=== PATIENT | female | born 1995 | race Hispanic/Latino ===

== ENCOUNTER 2019-06-03 19:15 | Inpatient (IN) | payer MEDICAID, OTHER ==
--- NOTE | 2019-06-03 18:12 | PDOC.LDHP ---
Labor and Delivery H&P Chief complaint: scheduled induction HPI: 24 yo G1 at 39.5 by LMP/7.1wk sono ([facility] 06/05/19) here for elective induction. has been complicated by anemia of and overweight BMI. Otherwise no other concerns. Denies any loss of fluid, contractions, vaginal bleeding or discharge. Endorses good movement. Current gestational age (weeks): 39 (39.5 wks) Due date: 06/05/19 Dating criteria: last menstrual period, first trimester ultrasound Grav: 1 Para: 0 OB History Details: First Current complications: none Abnormal US findings: No Past Medical History: None Current medications: pre- vitamins, iron Previous surgical history: none Allergies/Adverse Reactions: Allergies Allergy/AdvReac Type Severity Reaction Status Date / Time No Known Allergies Allergy Verified 06/03/19 22:38 Social history: none - Physical Exam Vital signs reviewed and normal: yes General: NAD, resting Heart: RRR Lungs: CTAB Abdomen: gravid Extremeties: pitting edema (in feet 1+) FHT: category 1, variability present [place] contractions every: 160 - Vaginal Exam cm dilated: 1 Effacement: 50% Station: -3 - OB Labs Blood type: O RH: positive Antibody Screen: negative HIV: negative RPR: negative HEPSAg: negative 1 hour GCT: negative GBS: negative Rubella: immune - Assessment L&D Assessment: elective induction at term - Plan Plan: admit to L&D -: 24 yo at 39.5 weeks here for elective IOL 1. Term sIUP, elective induction -Desires epidural -SVE: /-3, Bolanos 3 -FHT: Cat 1, baseline 160, accels, mod variability, no decels -Will start with Cytotec 2. Overweight BMI -S+D on growth on 05/07 3. Varicose veins -stable 4. Anemia of -recheck H/H with admission labs -continue PO iron
--- NOTE | 2019-06-03 18:12 | PDOC.FPRHP ---
- History of Present Illness Chief Complaint: elective induction History of Present Illness: 24 yo G1 at 39.5 by LMP/7.1wk chey ([facility] 06/05/19) here for elective induction. has been complicated by anemia of and overweight BMI. Otherwise no other concerns. Denies - History PMHx: PSHx: FHx: Social: - Vital signs BP: [] HR: [] RR: [] Tmax: [] Pox: []% on [] Wt: [] FMR H&P: Upper Level - Plan Date/Time: 06/03/191808 I, [], have evaluated this patient and agree with findings/plan as outlined by senior international tax manager resident. Pertinent changes/additions are listed here.
[~2019-06-03 19:15] MED LIST: Bupivacaine 0.25% 10 ML VIAL ONE
[2019-06-03 22:52] VITALS: BMI 33.4
[2019-06-03] MEDS ORDERED: hydrALAZINE 20 MG/ML VIAL SLOW IVP PRN (22:53)
[2019-06-03] MEDS ORDERED: Acetaminophen 500 MG TAB PO PRN (22:53)
[2019-06-03] MEDS ORDERED: Butorphanol Tartrate 1 MG/ML VIAL SLOW IVP PRN (22:53)
[2019-06-03] MEDS ORDERED: Carboprost 250 MCG/ML AMP IM PRN (22:53)
[2019-06-03] MEDS ORDERED: Diphenoxylate HCl/Atropine Tablet PO PRN (22:53)
[2019-06-03] MEDS ORDERED: NS / Oxytocin 40 units/1000ml 1,000 ML IV PRN (22:53)
[2019-06-03] MEDS ORDERED: Ibuprofen 800 MG TAB PO PRN (22:53)
[2019-06-03] MEDS ORDERED: Promethazine HCl 25 MG/ML VIAL IM PRN (22:53)
[2019-06-03] MEDS ORDERED: Ondansetron PF 4 MG/2 ML Vial IVP PRN (22:53)
[2019-06-03] MEDS ORDERED: Docusate 100 MG CAP PO PRN (22:53)
[2019-06-03] MEDS ORDERED: Methylergonovine 0.2 MG/ML VIAL IM PRN (22:53)
[2019-06-03] MEDS ORDERED: Misoprostol 200 MCG TAB PR PRN (22:53)
[2019-06-03] MEDS ORDERED: Lidocaine 1% (PF) 30 ML VIAL SC PRN (22:53)
[2019-06-03] MEDS ORDERED: Misoprostol 100 MCG TAB VAG SCH (23:00)
[2019-06-03 23:16] LABS: Hemoglobin 12.2 g/dL (12.0-16.0); Mean Corpuscular HGB CONC 35.2 g/dL (32.0-36.0); Mean Corpuscular Hemoglobin 31.3 pg (27.0-31.0); Mean Corpuscular Volume 89.1 fL (78.0-98.0); Mean Platelet Volume 8.7 fL (7.4-10.4); Platelet Count 240 thou/uL (130-400); RBC Distribution Width 12.1 % (11.5-14.5); Red Blood Cell (RBC) Count 3.88 mill/uL (4.20-5.40); White Blood Cell (WBC) Count 11.9 thou/uL (4.8-10.8)
[2019-06-03] MEDS: Lactated Ringer's 1,000 ML IV SCH (23:30)
[2019-06-03] MEDS: Misoprostol 100 MCG TAB VAG SCH (23:32)
[2019-06-03 23:55] LABS: HBSAg Index 0.17 S/CO (0-0.99); Hep B Surf Ag Non-Reactive S/CO (NonReactive); Syphilis Antibody Nonreactive (Nonreactive); Syphilis Antibody Index 0.05 S/CO (<1.00 Non-Reactive)
[2019-06-04] MEDS: Lactated Ringer's 1,000 ML IV SCH ×3 (03:15→23:15)
[2019-06-04] MEDS: Misoprostol 100 MCG TAB VAG SCH ×6 (03:17→23:30)
--- NOTE | 2019-06-04 03:41 | PDOC.LDPN ---
Labor & Delivery Progress Note - Subjective Subjective: comfortable - Objective Vital signs reviewed and normal: yes General: NAD, resting Uterine fundus: non tender SVE: 50/-3 Dilation: 1 Effacement: 50% Station: -3 FHT: category 1, variability present - Assessment (1) Term Code(s): Z34.90 - ENCNTR FOR SUPRVSN OF NORMAL , UNSP, UNSP TRIMESTER Current Visit: Yes Status: Acute Plan: continue plan of care -: 24 yo at 39.5 weeks here for elective IOL 1. Term sIUP, elective induction -Desires epidural -SVE: /-3, Bolanos 3 -FHT: Cat 1, baseline 140, accels, mod variability, no decels, Contractions 3-4 minutes -Cytotec placed, will place second one 2. Overweight BMI -S+D on growth on 05/07 3. Varicose veins -stable 4. Anemia of -H/H: 12. -continue PO iron
--- NOTE | 2019-06-04 09:04 | PDOC.LDPN ---
Labor & Delivery Progress Note - Subjective Subjective: comfortable - Objective Vital signs reviewed and normal: yes General: NAD, resting SVE: /-2 @ 0730 Dilation: 1 Effacement: 50% Station: -2 FHT: category 1 [place] contractions every: 1-2 min Plan: continue plan of care -: 24 yo at 39.5 weeks here for elective IOL 1. Term sIUP, elective induction -Desires epidural -SVE: /-2, [place]anos 3 -FHT: Cat 1, baseline 140-145, accels, mod variability, no decels, Contractions 1-2 minutes -Cytotec placed x 2, will hold Cytotec for now d/t contraction pattern 2. Overweight BMI -S+D on growth on 05/07 3. Varicose veins -stable 4. Anemia of -H/H: 12. -continue PO iron Addendum - Attending - Attending Attestation Date/Time: 06/04/19 0916 I personally evaluated the patient and discussed the management with Dr. Mason I agree with the History, Examination, Assessment and Plan documented above with any addition or exceptions noted below. If contractions not painful ok to give 3rd miso. Marlys
[2019-06-04] MEDS ORDERED: Misoprostol 100 MCG TAB VAG SCH (15:00)
--- NOTE | 2019-06-04 15:10 | PDOC.LDPN ---
Labor & Delivery Progress Note - Subjective Subjective: comfortable, no concerns - Objective Vital signs reviewed and normal: yes General: NAD, resting Uterine fundus: non tender SVE: 2/50/-3 @1500 Dilation: 2 Effacement: 50% Station: -3 FHT: category 1, variability present [place] contractions every: 4-5 min Other exam findings: cytotec 50 mg placement Plan: continue plan of care, labor augmentation -: 24 yo at 39.5 weeks here for elective IOL 1. Term sIUP, elective induction -Desires epidural -SVE: 2/50/-2, Bolanos 3 -FHT: Cat 1, baseline 140-145, accels, mod variability, no decels, Contractions 4-5 minutes -Cytotec placed x 2, at this check placed Cytotec 50 mg 2. Overweight BMI -S+D on growth on 05/07 3. Varicose veins -stable 4. Anemia of -H/H: 12.234 -continue PO iron Dispo: Continue to monitor. Will allow patient to eat at 1700 (2 hrs post- cytotec). Consider additional measures at next check. Addendum - Attending - Attending Attestation Date/Time: 06/04/19 0444 I personally evaluated the patient and discussed the management with Dr. Mason I agree with the History, Examination, Assessment and Plan documented above with any addition or exceptions noted below. Patient doing well. Stable. Continue current plan. Ok to eat 2 hours after. Marlys
--- NOTE | 2019-06-04 21:53 | PDOC.LDPN ---
Labor & Delivery Progress Note - Subjective Subjective: comfortable, no concerns - Objective Vital signs reviewed and normal: yes General: NAD, resting Dilation: 2/50/-2 Effacement: 50% Station: -2 FHT: category 1, variability present (moderate) [place] contractions every: 1-3 min Other exam findings: cook catheter balloon placed Plan: continue plan of care, labor augmentation -: balloon placed for labor induction continue expectant mgmt
--- NOTE | 2019-06-05 03:58 | PDOC.LDPN ---
Labor & Delivery Progress Note - Subjective Subjective: comfortable, no concerns (feeling "small" contractions, sleeping through ctx) - Objective Vital signs reviewed and normal: yes General: NAD, resting SVE: cook balloon in place, ~0300, tugged and remained in place per nursing FHT: category 1, variability present (moderate) [place] contractions every: 5-7 min Other exam findings: accels present on FHT Plan: continue plan of care, labor augmentation, pitocin for augmentation -: continue expectant mgmt Cook balloon in place w/ 80/80 mL (intrauterine/vaginal) will begin pitocin for augmentation of labor and titrate per protocol
[2019-06-05] MEDS: NS w/ Oxytocin 10 units 500 ML IV SCH ×2 (04:15→18:10)
[2019-06-05] MEDS: Misoprostol 100 MCG TAB VAG SCH ×5 (04:15→23:43)
--- NOTE | 2019-06-05 07:39 | PDOC.LDPN ---
Labor & Delivery Progress Note - Subjective Subjective: comfortable, no concerns - Objective Vital signs reviewed and normal: yes General: NAD, resting Uterine fundus: non tender SVE: 2/50/-2 @ 0600 Dilation: 2 Effacement: 50% Station: -2 FHT: category 1, variability present [place] contractions every: 1-2 min Other exam findings: membranes intact Procedures: balloon placed at 2200 on 06/04 Plan: continue plan of care -: 24 yo at 39.5 weeks here for elective IOL 1. Term sIUP, elective induction -Desires epidural -SVE: 2/50/-2, Bolanos 3 -FHT: Cat 1, baseline 150, accels, mod variability, no decels, Contractions 1-2 minutes -Cytotec placed x 3 (25, 25, 50 mg) -[place] balloon in place w/ 80/80 mL (intrauterine/vaginal) @ 2200 on 06/04/2019 -Pitocin currently @ 6 for augmentation of labor and titrate per protocol 2. Overweight BMI -S+D on growth on 05/07 3. Varicose veins -stable 4. Anemia of -H/H: 12. -continue PO iron Dispo: Continue to monitor and expectant management. Addendum - Attending - Attending Attestation Date/Time: 06/05/19 7540 I personally evaluated the patient and discussed the management with Dr. Mason I agree with the History, Examination, Assessment and Plan documented above with any addition or exceptions noted below. Patient doing well. Fetus stable. Balloon still in place. Repeat check at 10 to remove balloon. Continue pit per protocol. Marlys
[2019-06-05] MEDS: Lactated Ringer's 1,000 ML IV SCH ×3 (08:38→23:00)
--- NOTE | 2019-06-05 11:21 | PDOC.LDPN ---
Labor & Delivery Progress Note - Subjective Subjective: painful contractions, no concerns - Objective Vital signs reviewed and normal: yes General: NAD, resting, breathing through contractions Uterine fundus: non tender SVE: Balloon out @ 1045 Dilation: 4 Effacement: 75% Station: -2 FHT: category 1 [place] contractions every: 3 Resuscitative measures: amniofusion, maternal IV fluids Plan: continue plan of care, pitocin for augmentation -: 1) eIOL - cervical change with balloon and pitocin - continue pit currently @ 14 - titrate to adequate contractions - membranes intact - cont IOL Dispo: stable, cont plan of care Addendum - Attending - Attending Attestation Date/Time: 06/05/19 0505 I personally evaluated the patient and discussed the management with Dr. Jackman I agree with the History, Examination, Assessment and Plan documented above with any addition or exceptions noted below. Now 4 cm. Balloon out. Membranes still intact. Will continue pitocin per protocol. Repeat exam in 4 hours. Cat 1 tracing. Marlys
--- NOTE | 2019-06-05 14:21 | PDOC.LDPN ---
Labor & Delivery Progress Note - Subjective Subjective: comfortable, no concerns - Objective Vital signs reviewed and normal: yes General: NAD, resting Uterine fundus: non tender SVE: 5/75/-2 @ 1400 Dilation: 5 Effacement: 75% Station: -2 FHT: category 1, variability present [place] contractions every: 2-3 min Plan: continue plan of care, pitocin for augmentation -: 24 yo at 39.5 weeks here for elective IOL 1. Term sIUP, elective induction -Desires epidural -SVE: 5/75/-2, Bolanos 3 -FHT: Cat 1, baseline 145-150, accels, mod variability, no decels, Contractions 2-3 minutes -Cytotec placed x 3 (25, 25, 50 mg) -Cook balloon in place w/ 80/80 mL (intrauterine/vaginal) @ 2200 on 06/04/2019, removed 1100 on 06/05 -Pitocin currently @ 14 for augmentation of labor and titrate per protocol -membranes intact 2. Overweight BMI -S+D on growth on 05/07 3. Varicose veins -stable 4. Anemia of -H/H: 12. -continue PO iron Dispo: Continue to monitor and expectant management. Addendum - Attending - Attending Attestation Date/Time: 06/05/19 6647 I personally evaluated the patient and discussed the management with Dr. Mason I agree with the History, Examination, Assessment and Plan documented above with any addition or exceptions noted below. Continues to make change with pitocin. Will continue per protocol. AROM when able. Cat 1 tracing. Repeat exam in 2 to 4 hours. Marlys
--- NOTE | 2019-06-05 16:31 | PDOC.LDPN ---
Labor & Delivery Progress Note - Subjective Subjective: comfortable, no concerns - Objective Vital signs reviewed and normal: yes General: NAD Uterine fundus: non tender SVE: /- [place] contractions every: 2-3 AROM: clear fluid IUPC placed: yes -: 24 yo at 39.5 weeks here for elective IOL 1. Term sIUP, elective induction -Desires epidural -SVE: /-1 -FHT: Cat 1, baseline 145-150, accels, mod variability, no decels, Contractions 2-3 minutes -AROM, IUPC placed, will titrate up pitocin 2. Overweight BMI -S+D on growth on 05/07 3. Varicose veins -stable 4. Anemia of -H/H: 12. -continue PO iron Dispo: Continue to monitor and expectant management.
[2019-06-05] MEDS ORDERED: Fentanyl 4 mcg/Bup 0.1% Cadd 100 ML ONE (16:56)
[2019-06-05] MEDS ORDERED: diphenhydrAMINE 50 MG/ML VIAL IVP PRN (17:53)
[2019-06-05] MEDS ORDERED: Acetaminophen 325 MG TAB PO PRN (17:53)
[2019-06-05] MEDS ORDERED: Lactated Ringer's 500 ML IV PRN (17:53)
[2019-06-05] MEDS ORDERED: Ondansetron PF 4 MG/2 ML Vial IVP PRN (17:53)
[2019-06-05] MEDS ORDERED: Promethazine HCl 25 MG/ML VIAL IM PRN (17:53)
[2019-06-05] MEDS ORDERED: ePHEDrine/0.9% NaCl/PF SYRINGE 50 mg/10 ml SLOW IVP PRN (17:53)
[2019-06-05] MEDS ORDERED: Naloxone HCl 0.4 mg/ml Vial IVP PRN ×2 (17:53)
[2019-06-05] MEDS ORDERED: Communication Order-Pharmacy FS SCH (18:00)
[2019-06-05] MEDS ORDERED: Fentanyl 4 mcg/Bupivacaine 0.1% Cassette 100 ML EPIDURAL SCH (18:00)
--- NOTE | 2019-06-05 18:19 | PDOC.LDPN ---
Labor & Delivery Progress Note - Subjective Subjective: comfortable, no concerns (epidural just placed) - Objective Vital signs reviewed and normal: yes General: NAD, resting SVE: per Samme RN Dilation: 6 Effacement: 90% Station: -1 FHT: category 2, acceleration absent, late decelerations (has had 5 recurrent decels since finishing placement of epidural), variability present (moderate) [place] contractions every: 2-4 min Other exam findings: Pt BP lower w/ epidural. IUPC placed: yes Resuscitative measures: maternal IV fluids Plan: resuscitative measures -: following epidural, pitocin held and IV fluids given. Pt BP low and FHT showing recurrent late decels x5. Will await return to category 1 strip, then restart pitocin. Epidural in place continue expectant mgmt Next neck in 2 hours.
--- NOTE | 2019-06-05 20:34 | PDOC.LDPN ---
Labor & Delivery Progress Note - Subjective Subjective: comfortable - Objective Vital signs reviewed and normal: yes General: NAD, resting - Assessment (1) Term Code(s): Z34.90 - ENCNTR FOR SUPRVSN OF NORMAL , UNSP, UNSP TRIMESTER Current Visit: Yes Status: Acute -: /-1 contractions q3-4, pit at 10 Cat [address], epidural in place
--- NOTE | 2019-06-05 22:10 | PDOC.LDPN ---
Labor & Delivery Progress Note - Subjective Subjective: comfortable - Objective General: NAD FHT: category 1 - Assessment (1) Term Code(s): Z34.90 - ENCNTR FOR SUPRVSN OF NORMAL , UNSP, UNSP TRIMESTER Current Visit: Yes Status: Acute -: 100/0 contractions q3-4, pit at 10 Cat [address], epidural in place expectant mgmt
[2019-06-05] MEDS ORDERED: Lidocaine 1% (PF) 30 ML VIAL ONE (22:26)
[2019-06-05] MEDS ORDERED: NS / Oxytocin 40 units/1000ml 1,000 ML ONE (22:26)
--- NOTE | 2019-06-05 23:57 | PDOC.OPDEL ---
OB Operative/Delivery Note Delivery Dr/Surgeon: William Maxwell Pre-Delivery Diagnosis: elective induction Procedure/Post Delivery Dx: spontaneous vaginal delivery Anesthesia: epidural - Additional Findings/Plan Placenta delivered: spontaneous Compilations/Other Findings: Delivering Physician: Abhishek Thomas MD, Dr. Hans MD Attending: Dr. Lauri Walter Procedure: Spontaneous Vaginal Delivery Anesthesia: epidural, local QBL: Pending Pre-op Diagnosis: 1. Term intrauterine , elective induction Post-op Diagnosis: 1. Term intrauterine , delivered Indications: A 24 y/o female presents to L&D for elective induction Delivery Note: This is 24yo F @ 40.2 wks who delivered a viable F at 2330 on 06/05/19. Following an uneventful intrapartum course, a vigorous female was delivered over an intact perineum in the occipitoanterior position. Anterior shoulder and then remainder of the body delivered. No nuchal cord. The head was held down and mouth and nares were bulb suctioned. Cord clamped after delayed cord clamping and cut and cord blood collected. Placenta delivered intact in the [place] presentation with a 3 vessel cord noted. Fundal massage was performed and the fundus was boggy and 800mg cytotec and 0.2mg IM methergine was given- the cervix and vagina were inspected and b/l vaginal wall lacerations were found which were hemostatic. Infant went to nursery in good condition for routine care. Apgars were 8/9 at 1 & 5 minutes, respectively. Patient tolerated delivery well and went to after routine recovery/care. Post delivery plan: routine recovery Post delivery plan: routine recovery
[2019-06-06] MEDS: Misoprostol 100 MCG TAB VAG SCH (00:53)
[2019-06-06] MEDS ORDERED: Lanolin Ointment 7 GM TUBE TOP PRN (02:04)
[2019-06-06] MEDS ORDERED: Ondansetron PF 4 MG/2 ML Vial IVP PRN (02:04)
[2019-06-06] MEDS ORDERED: Adacel (T-DAP) 0.5 ML SYRINGE IM ONE (02:04)
[2019-06-06] MEDS ORDERED: NS / Oxytocin 40 units/1000ml 1,000 ML IV SCH (02:04)
[2019-06-06] MEDS ORDERED: Bisacodyl 10 MG SUPP PR PRN (02:04)
[2019-06-06] MEDS ORDERED: Promethazine HCl 25 MG/ML VIAL IM PRN (02:04)
[2019-06-06] MEDS ORDERED: hydrALAZINE 20 MG/ML VIAL SLOW IVP PRN (02:04)
[2019-06-06] MEDS ORDERED: Milk Of Magnesia 30 ML UDCUP PO PRN (02:04)
[2019-06-06] MEDS: Ibuprofen 800 MG TAB PO SCH ×3 (02:39→21:38)
[2019-06-06] MEDS ORDERED: Benzocaine-Menthol 82.5 ML CAN TOP PRN (02:46)
--- NOTE | 2019-06-06 02:50 | PDOC.BPN ---
- Brief Progress Note called to bedside by nursing for concern of hematoma patient was having difficulty urinating On exam bilateral superficial abrasions appear hemostatic hematoma smaller than marble at 7 o'clock position advised dermoplast, ibuprofen, antony catheter, ice pack will recheck in AM
[2019-06-06 05:40] LABS: #Basophils 0.1 thou/uL (0.0-0.2); #Eosinphils 0.1 thou/uL (0.0-0.7); #Monocytes 1.2 thou/uL (0.11-0.59); %Basophils 0.3 % (0.0-1.0); %Eosinophils 0.3 % (0.0-10.0); %Lymphocytes 11.1 % (21.0-51.0); %Monocytes 6.3 % (0.0-10.0); Hemoglobin 11.4 g/dL (12.0-16.0); Mean Corpuscular HGB CONC 33.6 g/dL (32.0-36.0); Mean Corpuscular Hemoglobin 30.6 pg (27.0-31.0); Mean Corpuscular Volume 91.2 fL (78.0-98.0); Mean Platelet Volume 8.4 fL (7.4-10.4); Platelet Count 186 thou/uL (130-400); RBC Distribution Width 12.3 % (11.5-14.5); Red Blood Cell (RBC) Count 3.73 mill/uL (4.20-5.40); White Blood Cell (WBC) Count 18.3 thou/uL (4.8-10.8)
--- NOTE | 2019-06-06 06:14 | PDOC.PP ---
Post Progress Note Post Day #: 1 Subjective: No acute events overnight. Patient with some vaginal bleeding that has now decreased after applying ice pack. Comfortable otherwise and pain controlled with current regimen PO intake tolerated: yes Flatus: no Ambulation: no Vital Signs (12 hours) Temp Pulse Resp BP 06/06/19 05:35 98.5 F 70 16 118/65 Weight Weight 80.286 kg - Physical Examination General: NAD Cardiovascular: RRR Respiratory: clear to auscultation bilaterally, non-labored breathing Abdominal: appropriately TTP Fundus firm & at: umbilicus Deviation from normal: hemostatic sidewall vaginal lacerations, right vaginal extramucosal Perineum: hematoma, 1cm Neurological: no gross focal deficits Psychiatric: A&Ox3, normal affect Result Diagrams: 06/06/19 05:28 Additional Labs: Post Labs Blood Type O POSITIVE 06/03/19 23:08 Hep Bs Antigen Non-Reactive S/CO (NonReactive) 06/03/19 23:08 (1) (spontaneous vaginal delivery) Code(s): O80 - ENCOUNTER FOR FULL-TERM UNCOMPLICATED DELIVERY Status: Acute - Assessment/Plan s/p term at [address] s[address]p ter , PPD #1 -Some vaginal bleeding overnight from previously hemostatic sidewall abrasions -Continue pain control management -Consideration of IUD -financial operations consultant for breast feeding Addendum - Attending - Attending Attestation Date/Time: 06/06/19 1342 I personally evaluated the patient and discussed the management with Dr. Thomas I agree with the History, Examination, Assessment and Plan documented above with any addition or exceptions noted below. POD#1 Patient doing well. Lochia appropriate. Some trouble with breast feeding. Hematoma now resolved. Will d/c antony. Lacerations healing well. Pain controlled. Encourage ambulation today. for breast feeding. Marlys
[2019-06-06] MEDS: Docusate Calcium (SURFAK) 240 MG CAP PO SCH ×2 (10:00→21:38)
[2019-06-06] MEDS: Ferrous Sulfate 325 MG TAB PO SCH ×2 (10:59→19:39)
[2019-06-07] MEDS: Ibuprofen 800 MG TAB PO SCH ×2 (05:05→14:21)
--- NOTE | 2019-06-07 06:27 | PDOC.PP ---
Post Progress Note Post Day #: 2 Subjective: NAEO. Bleeding much improved. Some pain at vaginal area but sitz baths helping. No other concerns at this time. PO intake tolerated: yes Flatus: yes Ambulation: yes Vital Signs (12 hours) Temp Pulse Resp BP Pulse Ox 06/06/19 20:00 98.8 F 70 16 129/70 98 Weight Weight 80.286 kg - Physical Examination Cardiovascular: RRR Respiratory: clear to auscultation bilaterally, non-labored breathing Abdominal: appropriately TTP Psychiatric: A&Ox3, normal affect Result Diagrams: 06/06/19 05:28 Additional Labs: Post Labs Blood Type O POSITIVE 06/03/19 23:08 Hep Bs Antigen Non-Reactive S/CO (NonReactive) 06/03/19 23:08 (1) (spontaneous vaginal delivery) Code(s): O80 - ENCOUNTER FOR FULL-TERM UNCOMPLICATED DELIVERY Status: Acute - Assessment/Plan s/p term at 40 [address] s[address] ter , PPD #2 -Improved VB- hemostatic sidewall abrasions -Continue pain control management -Consideration of IUD -medical consultant for breast feeding Addendum - Attending - Attending Attestation Date/Time: 06/07/19 [id number] I personally evaluated the patient and discussed the management with Dr. Thomas I agree with the History, Examination, Assessment and Plan documented above with any addition or exceptions noted below. PPD#2 Patient doing well. No complications. to follow up later today. Encourage ambulation. If remains well, ok to d/c in afternoon. 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 Marlys
[2019-06-07] MEDS: Ferrous Sulfate 325 MG TAB PO SCH (08:01)
[2019-06-07 08:43] VITALS: BP 118/75; TEMP 98.5
[2019-06-07] MEDS ORDERED: Benzocaine-Menthol 82.5 ML CAN TOP SCH (08:48)
[2019-06-07] MEDS: Docusate Calcium (SURFAK) 240 MG CAP PO SCH (09:03)
== END 2019-06-07 17:17 | disposition home or self-care (01) | DRG 807 ==
LOC: L&D 22:02 → 3SW 06-06 03:33
PROVIDERS: ADMIT Family Medicine; ATTEND Family Medicine
PROC: 10E0XZZ Delivery of Products of Conception, External Approach (ICD-10-PCS; principal; 2019-06-05)
PROC: 10H07YZ Insertion of Other Device into Products of Conception, Via Natural or Artificial Opening (ICD-10-PCS; 2019-06-05)
PROC: 10907ZC Drainage of Amniotic Fluid, Therapeutic from Products of Conception, Via Natural or Artificial Opening (ICD-10-PCS; 2019-06-05)
PROC: 3E033VJ Introduction of Other Hormone into Peripheral Vein, Percutaneous Approach (ICD-10-PCS; 2019-06-05)
DX: O99.02 Anemia complicating childbirth (principal); Z37.0 Single live birth; Z3A.39 39 weeks gestation of pregnancy; O87.4 Varicose veins of lower extremity in the puerperium; O70.0 First degree perineal laceration during delivery; D64.9 Anemia, unspecified
CPT/HCPCS: 36415; 51702; 85025; 85027; 86780; 86850; 86900; 86901; 87340; J0595; J2001; J2210; J2405; J2590; S0020